=== PATIENT | female | born 1950 | race Caucasian/White ===

== ENCOUNTER → 2017-12-10 | Outpatient (CLI) | payer OTHER | LOC: ROC 10:36 | PROVIDERS: ATTEND Radiology Radiation Oncology | DX: Z08 Encounter for follow-up examination after completed treatment for malignant neoplasm (principal); C37 Malignant neoplasm of thymus | CPT/HCPCS: G0463 ==

== ENCOUNTER 2018-12-14 10:20 | Outpatient (CLI) | payer OTHER | END 2018-12-14 23:59 | disposition home or self-care (01) | LOC: ROC 10:20 | PROVIDERS: ATTEND Radiology Radiation Oncology | DX: C37 Malignant neoplasm of thymus (principal) | CPT/HCPCS: 99212; G0463 ==